=== PATIENT | female | born 1980 | race Caucasian/White ===

== ENCOUNTER 2023-08-11 | Outpatient (REF) | payer OTHER, SELFPAY | END 2023-08-11 00:01 | disposition home or self-care (01) | LOC: LAB | PROVIDERS: Visit Provider Obstetrics & Gynecology | DX: Z01.419 Encounter for gynecological examination (general) (routine) without abnormal findings (principal) | CPT/HCPCS: 87624; G0145 ==

== ENCOUNTER 2023-09-25 08:56 | Outpatient (OUT) | payer OTHER, SELFPAY ==
--- OUTSIDE RECORDS SUMMARY | 2023-09-25 09:00 | XMS_ITS | CCD ---
Author Organization [facility] Care Team Providers Care Food Service Technician Name Role Phone DR ASIM GALAN Attending Unavailable ANGELIA, DR DAILEY Consulting Unavailable ANGELIA, DR DAILEY Admitting Unavailable KLAEGE, HARRY L Referring Unavailable KLAEGE, HARRY L Primary Care Unavailable JAS MICHAEL Referring Unavailable KLAEGE, HARRY L Primary Care Unavailable Klaege, Harry Primary Care Unavailable Klaege, Harry Attending Unavailable Klaege, Harry Attending Unavailable Klaege, Harry Primary Care Unavailable Klaege, Harry Attending Unavailable Klaege, Harry Primary Care Unavailable Klaege, Harry Primary Care Unavailable KAY OLSON Attending Unavailable KLAEGE, HARRY L Referring Unavailable KLAEGE, HARRY L Primary Care Unavailable KLAEGE, HARRY L Referring Unavailable KLAEGE, HARRY L Primary Care Unavailable ASIM GALAN Attending Unavailable ANGELIA, ASIM Referring Unavailable ASIM GALAN Attending Unavailable Allergies Allergy Classification Reported Allergen(s) Allergy Type Date of Onset Reaction(s) Facility (1 source) Escitalopram; Translations: [Lexapro] Drug Allergy [facility] Repository (1 source) No Known Medication Allergies; Translations: [No Known Medication Allergies] Propensity to adverse reactions to drug (disorder) [facility] Repository Problems Active Problems Problem Classification Problem Date Documented Da te Episodic/Chronic Esophageal disorders (1 source) Esophageal disorders; Translations: [Gastro-esophageal reflux disease with esophagitis, without bleeding] Onset: 07-15-2023 Immunizations and screening for infectious disease (1 source) Encounter for screening for human papillomavirus (HPV); Translations: [ENC SCREENING HUMAN PAPILLOMAVIRUS] Onset: 11-14-2021 Episodic Other female genital disorders (1 source) Personal history of other diseases of the female genital tract; Translations: [Personal history of other diseases of the female genital tract] Onset: 08-18-2023 Episodic Other gastrointestinal disorders (1 source) Bariatric surgery status; Translations: [Bariatric surgery status] Onset: 07-15-2023 Episodic Other screening for suspected conditions (not mental disorders or infectious disease) (4 sources) Encounter for screening for malignant neoplasm of cervix; Translations: [ENC SCREENING MALIG NEOPLASM CERV] Onset: 11-12-2021 Episodic Residual codes; unclassified (1 source) Family history of diseases of the blood and blood-forming organs and certain disorders involving the immune mechanism; Translations: [Family history of diseases of the blood and blood-forming organs and certain disorders involving the immune mechanism] Onset: 08-18-2023 Episodic Unclassified (1 source) Outpatient Infusion Onset: 07-02-2023 Unclassified (1 source) New Patient Onset: 08-18-2023 Past or Other Problems Problem Classification Problem Date Documented Da te Episodic/Chronic Fluid and electrolyte disorders (1 source) Dehydration; Translations: [Dehydration] Onset: 02-11-2022 Episodic Other nutritional; endocrine; and metabolic disorders (1 source) Other symptoms and signs concerning food and fluid intake; Translations: [Other symptoms and signs concerning food and fluid intake] Onset: 02-11-2022 Episodic Results Test Name Value Interpretation Reference Range Facil ity BI MAMMOGRAM SCREENING TOMOS YNTHESIS BILATERALon 08-26-2023 BI MAMMOGRAM SCREENING TOMOSYNTHESIS BILATERAL This is a summary report. The complete report is available in the patient's medical record. If you cannot access the medical record, please contact the sending organization for a detailed fax or copy. EXAMINATION: BI MAMMOGRAM SCREENING TOMOSYNTHESIS BILATERAL CLINICAL HISTORY:screening breast cancer COMPARISON: There are no previous mammograms available for comparison. RESULT: Density: Almost entirely fatty [1] Typically benign calcifications. There is no suspicious mass, asymmetry, architectural distortion, or calcification IMPRESSION: BIRADS 2 - Benign Follow-up: Routine Screening Mamm Board Certified Radiologists. Accredited by the ACR and FDA. MAMMOGRAPHY IS VERY IMPORTANT TO YOUR HEALTH. THE [employer]ET[employer] GUIDELINES RECOMMEND THAT WOMEN 40 YEARS OF AGE AND OLDER SHOULD HAVE A MAMMOGRAM EVERY YEAR. A REMINDER LETTER WILL BE SENT AT THE APPROPRIATE TIME. THIS FACILITY UTILIZES A REMINDER SYSTEM TO ENSURE ALL PATIENTS RECEIVE REMINDER NOTIFICATIONS AT THE APPROPRIATE TIME BASED ON THE RECOMMENDATIONS OF THIS EXAM. THIS INCLUDES REMINDERS FOR ROUTINE SCREENING MAMMOGRAMS, DIAGNOSTIC MAMMOGRAMS IN WHICH THE PATIENT IS ASKED TO RETURN FOR ADDITIONAL VIEWS, OR OTHER BREAST IMAGING INTERVENTIONS WHEN APPROPRIATE. THE PATIENT WILL BE PLACED IN THE APPROPRIATE REMINDER SYSTEM INCLUDING A REMINDER AT THE APPROPRIATE TIME FOR ANY PENDING ADDITIONAL VIEWS. TRANSCRIBED BY: ELECTRONICALLY SIGNED BY: Miller Tony MD Normal Not Available Laboratory comment Aurelio (Repo rt)on 08-18-2023 UNLISTED LAB TEST Sent to reference lab Normal [facility] PLATELET FUNCTIONon 08-18-19 24 COLLAGEN/ADP 83 sec Normal 0-[address] [facility] Comment on above: Performed By: #### P FA, PINR, [id number] #### [facility] ([id number]) [address], [address] [place] [address] COLLAGEN/EPINEPHRIN E 107 sec Normal 0-[address] [facility] Comment on above: Performed By: #### P FA, PINR, [id number] #### [facility] ([id number]) [address], [address] [place] [address] PFA INTERP Platelet function is normal. If patient Normal [facility] Comment on above: Result Comment: hist ory/physical examination gives strong indication of a bleeding disorder, consider testing for other etiologies. Performed By: #### P FA, PINR, [id number] #### [facility] ([id number]) [address], [address] [place] [address] PROTIME AND INRon 08-18-2023 INR Coag (PPP) [Relative time] 1.1 {INR} Normal 0.8-1.[address] [facility] Comment on above: Performed By: #### P FA, PINR, [id number] #### [facility] ([id number]) [address], [facility] [address] [place] [address] PT Coag (PPP) [Time] 12.7 s Normal 9.8-13.[address] [facility] Comment on above: Performed By: #### P FA, PINR, [id number] #### [facility] ([id number]) [address], [address] [place] [address] SEND OUT TESTon 08-18-2023 SENT TO [facility] Normal [facility] SPECIMEN YELLOW ACD WHOLE BLOOD Normal Pr [facility] TEST NAME: ELECTRON PLATELET MICROSCOPY Normal [facility] TEST RESULT See separate report for further information. Normal [facility] Comment on above: Result Comment: View in OnBase Viewer in EPIC or MedRec Tab in ICARE or HPF. aPTT Coag (PPP) [Time]on aPTT Coag (Bld) [Time] 36 s Normal 26-[address] [facility] Comment on above: Performed By: #### P FA, PINR, [id number] #### [facility] ([id number]) [address], [address] [place] [address] PAP ACOG PANEL 2: 30 to 65on 11-18-2021 . . Normal [facility] Comment on above: Result Comment: Perf ormed at: WB Performed By: #### [id number] #### [facility] [address] [address] [address] Sabra Vargas Age Gdln ACOG Testing 30-65 Normal [facility] Comment on above: Performed By: #### [id number] #### [facility] [address] [address] [address] Sabra Vargas DIAGNOSIS: Comment Normal [facility] Comment on above: Result Comment: NEGA TIVE FOR INTRAEPITHELIAL LESION OR MALIGNANCY. Performed at: WB Performed By: #### 4 [id number] #### [facility] [address] [address] [address] Sabra Vargas HPV Aptima Negative Normal Negative [facility] Comment on above: Result Comment: This nucleic acid amplification test detects fourteen high-risk HPV types (16,18,31,33,35,39,45,51,52,56,58,59,66,68) without differentiation. Performed at: =G Performed By: #### 4 [id number] #### [facility] [address] [address] [address] Sabra Vargas Methodology: Comment Normal [facility] Comment on above: Result Comment: This liquid based ThinPrep(R) pap test was screened with the use of an image guided system. Performed at: WB Performed By: #### 4 [id number] #### [facility] [address] [place] [address] Dr. Sabra Vargas Note: Comment Normal [facility] Comment on above: Result Comment: The Pap smear is a screening test designed to aid in the detection of premalignant and malignant conditions of the uterine cervix. It is not a diagnostic procedure and should not be used as the sole means of detecting cervical cancer. Both false-positive and false-negative reports do occur. . Performed at: WB Performed By: #### [id number] #### [facility] [address] [address] [address] Sabra Vargas Performed by: Comment Normal [facility] Comment on above: Result Comment: Abiodun Allen, Lever Tender (ASCP) Performed at: WB Performed By: #### 4 [id number] #### [facility] [address] [place] [address] Dr. Sabra Vargas Specimen adequacy: Comment Normal [facility] Comment on above: Result Comment: Sati sfactory for evaluation. Endocervical and/or squamous metaplastic cells (endocervical component) are present. Performed at: WB Performed By: #### 4 [id number] #### [facility] [address] [place] [address] Dr. Sabra Vargas Encounters Encounter Date Encounter Type Care Provider Facility Start: 09-14-2023 End: 09-14-2023 ambulatory ASIM ANGELIA Not Available Start: 08-26-2023 End: 08-26-2023 ambulatory ASIM ANGELIA Not Available Start: 08-18-2023 End: 08-18-2023 ambulatory HARRY KHAN [facility] Start: 08-18-2023 End: 08-18-2023 ambulatory KAY PATELA [facility] Start: 08-11-2023 End: 08-11-2023 ambulatory ASIM ANGELIA Not Available Start: 07-15-2023 End: 07-16-2023 ambulatory [facility] Start: 07-02-2023 End: 07-02-2023 ambulatory HARRY [facility] Start: 04-20-2023 End: 04-21-2023 ambulatory Harry Klaege Facility: [facility] Start: 04-13-2023 ambulatory Harry Klaege Facility:[facility] Start: 12-29-2022 End: 12-30-2022 ambulatory Harry Klaege Facility: [facility] Start: 10-09-2022 End: 10-10-2022 ambulatory Harry Klaege Facility: [facility] Start: 11-12-2021 End: 11-12-[address] ASIM GALAN Facility: Payers Date Payer Category Payer Unknown [id number] 1980 Unknown [id number] 2..84 [id number]. 1980 Unknown [id number] 2.16.8 [id number] 1980 Unknown [id number] 2.16.8 [id number] 1982 Unknown [id number] 2.16.8 40.1.263781.3.579.2. 1982 Unknown [id number] 2.16.8 40.1.076959.3.579.2. 1982 Unknown [id number] 2.16.8 40.1.212497.3.579.2. 1982 Unknown [id number] 2.16.8 40.1.031034.3.579.2. 1982 Unknown [id number] 2.16.8 [id number] 1982 Unknown [id number] 2.16.8 [id number] 1982 Unknown [id number] 2.16.84 0.1.001475.3.579.2.1259 1982 Unknown [id number] 2.16.84 [id number] 1982 Unknown [id number] 2.16.84 [id number] 1959 Unknown [id number] Medication management note 08-10-2023 Note Date & Type Note Facility 08-10-2023 Note Entered by Sierra Cordova on August 10, 2023 07:51:36 EDT From: Sierra Cordova To: [id number] Sent: 08/10/2023 07:51:36 EDT Subject: Medication Management Not Approved: proposal sent to prescriber gabapentin (GABAPENTIN 400 MG CAPSULE) TAKE 2 CAPSULES BY MOUTH IN THE MORNING AND 3 CAPSULES IN THE EVENING Qty: 450 cap(s) Days Supply: 90 Refills: 0 Substitutions Allowed Route To Pharmacy - [id number] Signed by Sierra Cordova From: [id number] To: Harry Khan MD Sent: August 10, 2023 4:28:26 AM CDT Subject: Medication Management Due: August 11, 2023 12:09:00 AM CDT On Hold Pending Signature Dispensed Drug: gabapentin (gabapentin 400 mg oral capsule), TAKE 2 CAPSULES BY MOUTH IN THE MORNING AND 3 CAPSULES IN THE EVENING Quantity: 450 cap(s) Days Supply: 90 Refills: 0 Substitutions Allowed Notes from Pharmacy: [facility] Clinical Note 07-15-2023 Note Date & Type Note Facility 07-15-2023 Note FL UGI WITH ESOPHAGU S CLINICAL INFORMATION: Prior duodenal switch procedure. Pain. COMPARISON: 11/12/2021 TECHNIQUE: Single contrast upper GI was performed. FINDINGS: Reference Air Kerma: 90 mGy ESOPHAGUS Anatomic: No mass, stricture, or ulceration. Motility: Mild-moderate dysmotility with intraesophageal stasis/reflux. Hiatal hernia: None. Gastroesophageal reflux: No significant gastroesophageal reflux, including with provocative maneuvers Other comments: None. STOMACH AND DUODENUM No gross mucosal abnormality Relatively rapid gastric emptying. Post surgical changes of duodenal switch, without anastomotic stricture. Opacification of both afferent/efferent limbs, presumably within physiologic limits.. Somewhat patulous small bowel loops measuring 3-3.5 cm towards the right lower quadrant, requiring clinical correlation. No evidence for obstruction, with relatively rapid positive contrast opacification of the cecum IMPRESSION: 1. 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 No hiatal hernia or significant/provoked gastroesophageal reflux. 2. Post surgical changes of duodenal switch. Relatively rapid gastric emptying, without evidence for anastomotic stricture. 3. Somewhat patulous postoperative small bowel loops, indeterminate significance. Relatively rapid transit to the cecum, seen incidentally during this upper GI study (within 10 to 15 minutes) Finalized by Victorino Powers MD on 07/15/2023 3:09 PM [facility] Medication management note 05-12-2023 Note Date & Type Note Facility 05-12-2023 Note Entered by Sierra Cordova on May 12, 2023 07:39:54 EST From: Sierra Cordova [facility]: [id number] Sent: 05/12/2023 07:39:54 EST Subject: Medication Management Not Approved: proposal sent to physician gabapentin (GABAPENTIN 400 MG CAPSULE) TAKE 2 CAPSULES BY MOUTH EVERY DAY IN THE MORNING AND TAKE 3 CAPSULES IN THE EVENING Qty: 450 cap(s) Days Supply: 90 Refills: 0 Substitutions Allowed Route To Pharmacy - [id number] Signed by Sierra Cordova From: [id number] To: Harry Khan MD Sent: May 11, 2023 6:29:23 PM NURSE EXTERN Subject: Medication Management Due: May 12, 2023 12:07:44 AM NURSE EXTERN On Hold Pending Signature Dispensed Drug: gabapentin (gabapentin 400 mg oral capsule), TAKE 2 CAPSULES BY MOUTH EVERY DAY IN THE MORNING AND TAKE 3 CAPSULES IN THE EVENING Quantity: 450 cap(s) Days Supply: 90 Refills: 0 Substitutions Allowed Notes from Pharmacy: [facility] Medication management note 01-22-2023 Note Date & Type Note Facility 01-22-2023 Note Entered by Sierra Cordova on January 22, 2023 09:34:14 EDT From: Sierra Cordova To: [id number] Sent: 01/22/2023 09:34:14 EDT Subject: Medication Management Not Approved: proposal sent to physician gabapentin (GABAPENTIN 400 MG CAPSULE) TAKE 2 CAPSULES BY MOUTH EVERY DAY IN THE MORNING AND 3 CAPSULES IN THE EVENING Qty: 450 cap(s) Days Supply: 90 Refills: 0 Substitutions Allowed Route To Pharmacy - [facility] #[id number] Signed by Sierra Cordova From: [id number] To: Harry Khan MD Sent: January 21, 2023 3:06:38 PM CDT Subject: Medication Management Due: January 22, 2023 1:51:22 PM CDT On Hold Pending Signature Dispensed Drug: gabapentin (gabapentin 400 mg oral capsule), TAKE 2 CAPSULES BY MOUTH EVERY DAY IN THE MORNING AND 3 CAPSULES IN THE EVENING Quantity: 450 cap(s) Days Supply: 90 Refills: 0 Substitutions Allowed Notes from Pharmacy: [facility] Medication management note 11-25-2022 Note Date & Type Note Facility 11-25-2022 Note Entered by Sierra Cordova on November 25, 2022 07:53:21 EDT From: Sierra Cordova To: [facility] #[id number] Sent: 11/25/2022 07:53:21 EDT Subject: Medication Management Approved Order:traZODone (traZODone 50 mg oral tablet) TAKE 1 TO 2 TABLETS BY MOUTH EVERY DAY AT BEDTIME Qty: 180 tab(s) Days Supply: 90 Refills: 1 Substitutions Allowed Route To Pharmacy - [id number] Note from Pharmacy: REQUEST FOR 90 DAYS PRESCRIPTION. Signed by Sierra Cordova Cancelled: Discontinue:traZODone (traZODone 50 mg oral tablet) Signed by Sierra Cordova From: [id number] To: Harry Khan MD Sent: November 24, 2022 11:04:41 AM CDT Subject: Medication Management Due: November 25, 2022 11:04:41 AM CDT Originally Prescribed Drug: Drug: traZODone (traZODone 50 mg oral tablet), TAKE 1 TO 2 TABLETS BY MOUTH EVERY DAY AT BEDTIME Quantity: 60 tab(s) Days Supply: 30 Refills: 0 Substitutions Allowed Notes from Pharmacy: REQUEST FOR 90 DAYS PRESCRIPTION. On Hold Pending Signature Preferred Alternative Drug: traZODone (traZODone 50 mg oral tablet), TAKE 1 TO 2 TABLETS BY MOUTH EVERY DAY AT BEDTIME Quantity: 180 tab(s) Days Supply: 90 Refills: 1 Substitutions Allowed Notes from Pharmacy: REQUEST FOR 90 DAYS PRESCRIPTION. [facility] Medication management note 11-10-2022 Note Date & Type Note Facility 11-10-2022 Note Entered by Sierra Cordova on November 10, 2022 10:58:33 EDT From: Sierra Cordova To: [facility] #[id number] Sent: 11/10/2022 10:58:33 EDT Subject: Medication Management Submitted: Complete:traZODone (traZODone 50 mg oral tablet) Signed by Sierra Cordova 11/10/2022 10:58:00 EDT Approved traZODone (TRAZODONE 50 MG TABLET) TAKE 1 TO 2 TABLETS BY MOUTH EVERY DAY AT BEDTIME Qty: 60 tab(s) Days Supply: 30 Refills: 0 Substitutions Allowed Route To Pharmacy - [facility] #[id number] Signed by Sierra Cordova From: [id number] To: Harry Khan MD Sent: November 09, 2022 10:30:37 AM CDT Subject: Medication Management Due: November 10, 2022 12:30:33 AM CDT On Hold Pending Signature Dispensed Drug: traZODone (traZODone 50 mg oral tablet), TAKE 1 TO 2 TABLETS BY MOUTH EVERY DAY AT BEDTIME Quantity: 60 tab(s) Days Supply: 30 Refills: 0 Substitutions Allowed Notes from Pharmacy: [facility] Medication management note 10-01-2022 Note Date & Type Note Facility 10-01-2022 Note Entered by Sierra Cordova on October 01, 2022 09:35:11 EDT From: Sierra Cordova To: [facility] #[id number] Sent: 10/01/2022 09:35:11 EDT Subject: Medication Management Submitted: Complete:citalopram (CeleXA 20 mg oral tablet) Signed by Sierra Cordova 10/01/2022 09:35:00 EDT Approved citalopram (CITALOPRAM HBR 20 MG TABLET) TAKE 1 TABLET BY MOUTH EVERY DAY Qty: 30 tab(s) Days Supply: 30 Refills: 1 Substitutions Allowed Route To Pharmacy - [facility] #[id number] Signed by Sierra Cordova Patient matched by Sierra Cordova on 10/01/2022 09:33:59 EDT From: [id number] To: Harry Khan MD Sent: October 01, 2022 8:30:31 AM CDT Subject: Medication Management Due: October 02, 2022 12:08:04 AM CDT On Hold Pending Signature Dispensed Drug: citalopram (citalopram 20 mg oral tablet), TAKE 1 TABLET BY MOUTH EVERY DAY Quantity: 30 tab(s) Days Supply: 30 Refills: 1 Substitutions Allowed Notes from Pharmacy: [facility] Summary Purpose Family History No Family History Records FoundNo Family History Records FoundNo Family History Records FoundNo Family History Records FoundNo Family History Records FoundNo Family History Records Found Advance Directives No Advanced Directives Records FoundNo Advanced Directives Records FoundNo Advanced Directives Records FoundNo Advanced Directives Records FoundNo Advanced Directives Records FoundNo Advanced Directives Records Found Additional Source Comments INFORMATION SOURCE (unrecogn ized section and content) DATE CREATED AUTHOR 11/19/2021 [facility] DATE CREATED AUTHOR AUTHOR'S ORGANIZ ATION 07/03/2023 [facility] DATE CREATED AUTHOR AUTHOR'S ORGANIZ ATION 07/17/2023 [facility] DATE CREATED AUTHOR AUTHOR'S ORGANIZ ATION 08/11/2023 [facility] DATE CREATED AUTHOR AUTHOR'S ORGANIZ ATION 08/23/[address] [facility] DATE CREATED AUTHOR AUTHOR'S ORGANIZ ATION 09/14/[address] [facility] EPIC FOR RECORDS PERTAINING TO PATIENTS WHO ARE OR HAVE BEEN ENROLLED IN A CHEMICAL DEPENDENCY/SUBSTANCEABUSE PROGRAM, SOME INFORMATION MAY BE OMITTED. This clinical summary was aggregated from multiple sources. Caution should be exercised in using it in the provision of clinical care. This summary normalizes information from multiple sources, and as a consequence, information in this document may materially change the coding, format and clinical context of patient data. In addition, data may be omitted in some cases. CLINICAL DECISIONS SHOULD BE BASED ON THE PRIMARY CLINICAL RECORDS. [employer] provides no warranty or guarantee of the accuracy or completeness of information in this document.
--- NOTE | 2023-09-25 09:23 | XR_ITS ---
The [address] [address] Patient Name: RONY APARICIO MRN: [id number] date: 1980 Sex: F Assigned Patient Location: [facility] Current Patient Location: Accession/Order Number: [id number] Exam Date: 09/25/2023 09:39 Report Date: 09/26/2023 06:27 At the request of: ASIM GALAN Procedure: XR chest 2V EXAMINATION: XR chest 2V HISTORY: Preop exam COMPARISON: No relevant comparison available. FINDINGS: LUNGS: Dense 9 mm nodule within lateral left lung base. Lungs are otherwise clear. VASCULATURE: No increased pulmonary vasculature. PLEURA: No pneumothorax, effusion, or pleural thickening. CARDIAC: No cardiomegaly or cardiac silhouette abnormality. MEDIASTINUM: No visible mass or adenopathy. BONES: No fracture or visible bone lesion. OTHER: Negative. XR/XR chest 2V IMPRESSION: 1. No acute cardiopulmonary process. 2. Left lung base nonspecific dense nodule, but favoring a calcified granuloma. No prior studies for comparison. Electronically authenticated by: HELENA FERGUSON Date: 09/26/2023 06:27
== END 2023-09-25 08:57 | disposition home or self-care (01) ==
PROVIDERS: Visit Provider Obstetrics & Gynecology
DX: Z01.810 Encounter for preprocedural cardiovascular examination (principal); R91.1 Solitary pulmonary nodule
CPT/HCPCS: 71046

== ENCOUNTER 2023-10-09 08:30 | Day surgery (SDC) | payer OTHER, SELFPAY ==
[2023-09-25 09:29] VITALS: BP 105/66; PULSE 63; TEMP 36.4; O2SAT 99; BMI 26.5
[2023-10-09] VITALS (11 sets, daily range): BP systolic 106–134; BP diastolic 64–93; PULSE 58–93; TEMP 36.1; O2SAT 95–98; BMI 26.5
[2023-10-09 08:39] LABS: Basophils Percent Auto 0.4 % (0.2-2.0); Eosinophils Absolute Auto 0.2 10^3/uL (0.0-0.7); Eosinophils Percent Auto 2.1 % (0.9-7.0); Hematocrit 39.9 % (36.0-48.0); Hemoglobin 12.9 g/dL (12.0-16.0); Immature Granulocytes Abs Auto 0.02 10^3/uL (0.00-0.03); Immature Granulocytes Pct Auto 0.2 % (0.0-0.5); Lymphocytes Absolute Auto 3.4 10^3/uL (1.2-3.8); Lymphocytes Percent Auto 35.9 % (20.5-60.0); Mean Corpuscular HGB Conc 32.3 g/dL (29.9-35.2); Mean Corpuscular Hemoglobin 30.1 pg (26.7-34.0); Mean Corpuscular Volume 93.2 fL (81.0-99.0); Monocytes Absolute Auto 0.7 10^3/uL (0.3-0.8); Monocytes Percent Auto 7.3 % (1.7-12.0); Neutrophils Absolute Auto 5.2 10^3/uL (1.4-6.5); Neutrophils Percent Auto 54.1 % (43.0-75.0); Platelet Count 244 10^3/uL (150-450); Red Blood Count 4.28 10^6/uL (4.20-5.40); Red Cell Distribution Width 12.3 % (11.0-15.0); White Blood Count 9.6 10^3/uL (4.0-11.0)
--- OUTSIDE RECORDS SUMMARY | 2023-10-09 08:51 | XMS_ITS | CCD ---
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 Repository (1 source) No Known Medication Allergies; Translations: [No Known Medication Allergies] Propensity to adverse reactions to drug (disorder) [facility] Repository Problems Active Problems Problem Classification [...] IS VERY IMPORTANT TO YOUR HEALTH. THE [employer] GUIDELINES RECOMMEND THAT WOMEN 40 [...] LAB TEST Sent to reference lab Normal [facility] PLATELET FUNCTIONon 08-18-19 24 COLLAGEN/ADP 83 sec Normal 0-114 [facility] Comment on above: Performed By: #### P FA, PINR, [id number] #### [facility] ([id number]) [address], [address] [place] [address] COLLAGEN/EPINEPHRIN E 107 sec Normal 0-179 [facility] Comment on above: Performed By: #### P FA, PINR, [id number] #### [facility] ([id number]) [address], [address] [place] [address] PFA INTERP Platelet function is normal. If patient Normal [facility] Comment on above: Result Comment: hist ory/physical examination gives strong indication of a bleeding disorder, consider testing for other etiologies. Performed By: #### P FA, PINR, [id number] #### [facility] ([id number]) [address], [address] [place] [address] PROTIME AND INRon 08-18-2023 INR Coag (PPP) [Relative time] 1.1 {INR} Normal 0.8-1.1 [facility] Comment on above: Performed By: #### P FA, PINR, [id number] #### [facility] ([id number]) [address], [facility] [address] [place] [address] PT Coag (PPP) [Time] 12.7 s Normal 9.8-13.2 [facility] Comment on above: Performed By: #### P FA, PINR, [id number] #### [facility] ([id number]) [address], [address] [place] [address] SEND OUT TESTon 08-18-2023 SENT TO [facility] Normal [facility] SPECIMEN YELLOW ACD WHOLE BLOOD Normal Pr [facility] TEST NAME: ELECTRON PLATELET MICROSCOPY Normal [facility] TEST RESULT See separate report for further information. Normal [facility] Comment on above: Result Comment: View in OnBase Viewer in EPIC or MedRec Tab in ICARE or HPF. aPTT Coag (PPP) [Time]on aPTT Coag (Bld) [Time] 36 s Normal 26-37 [facility] Comment on above: Performed By: #### P FA, PINR, [id number] #### [facility] ([id number]) [address], [address] [place] [address] PAP ACOG PANEL 2: 30 to 65on 11-18-2021 . . Normal [facility] Comment on above: Result Comment: Perf ormed at: WB Performed By: #### [id number] #### [facility] [address] [address] [address] Sabra Vargas Age Gdln ACOG Testing 30-65 Normal [facility] Comment on above: Performed By: #### [id number] #### [facility] [address] [address] [address] Sabra Vargas DIAGNOSIS: Comment Normal [facility] Comment on above: Result Comment: NEGA TIVE FOR INTRAEPITHELIAL LESION OR MALIGNANCY. Performed at: WB Performed By: #### [id number] #### [facility] [address] [address] [address] Sabra Vargas HPV Aptima Negative Normal Negative [facility] Comment on above: Result Comment: This nucleic acid amplification test detects fourteen high-risk HPV types (16,18,31,33,35,39,45,51,52,56,58,59,66,68) without differentiation. Performed at: =G Performed By: #### [id number] #### [facility] [address] [address] [address] Sabra Vargas Methodology: Comment Normal [facility] Comment on above: Result Comment: This liquid based ThinPrep(R) pap test was screened with the use of an image guided system. Performed at: WB Performed By: #### [id number] #### [facility] [address] [place] [address] Dr. Sabra Vargas Note: Comment Normal [facility] Comment on above: Result Comment: The Pap smear is a screening test designed to aid in the detection of premalignant and malignant conditions of the uterine cervix. It is not a diagnostic procedure and should not be used as the sole means of detecting cervical cancer. Both false-positive and false-negative reports do occur. . Performed at: WB Performed By: #### [id number] #### [facility] [address] [address] [address] Sabra Vargas Performed by: Comment Normal [facility] Comment on above: Result Comment: Abiodun Allen, Md Senior Research Scientist (ASCP) Performed at: WB Performed By: #### [id number] #### [facility] [address] [place] [address] Dr. Sabra Vargas Specimen adequacy: Comment Normal [facility] Comment on above: Result Comment: Sati sfactory for evaluation. Endocervical and/or squamous metaplastic cells (endocervical component) are present. Performed at: WB Performed By: #### 4 [id number] #### [facility] [address] [place] [address] Dr. Sabra Vargas Encounters Encounter Date Encounter [...] CLIN IC Start: 04-13-2023 ambulatory Harry Klaege Facility:[facility] Start: 12-29-2022 End: 12-30-2022 ambulatory Harry Klaege Facility: [facility] Start: 10-09-2022 End: 10-10-2022 ambulatory Harry Klaege Facility: [facility] Start: 11-12-2021 End: 11-12-[address] ASIM GALAN Facility: Payers Date Payer Category Payer Unknown [id number] 1980 Unknown [id number] 2..84 [id number] 1982 Unknown [id number] 2.16.8 [id number] 1982 Unknown [id number] 2.16.8 [id number] 1982 Unknown [id number] 2.16.8 [id number]. 1982 Unknown [id number] 2.16.8 40.1.672324.3.579.2. 1982 Unknown [id number] 2.16.8 40.1.359425.3.579.2. 1982 Unknown [id number] 2.16.8 40.1.242646.3.579.2. 1982 Unknown [id number] 2.16.8 [id number] 1982 Unknown [id number] 2.16.8 [id number] 1982 Unknown [id number] 2.16.84 [id number] 1982 Unknown [id number] 2.16.84 [id number] 1982 Unknown [id number] 2.16.84 [id number] 1959 Unknown [id number] Medication management note 08-10-2023 Note Date & Type Note Facility 08-10-2023 Note Entered by Sierra Cordova on August 10, 2023 07:51:36 EDT From: Sierra Cordova To: [id number] Sent: 08/10/2023 07:51:36 EDT Subject: Medication Management Not Approved: proposal sent to prescriber gabapentin (GABAPENTIN 400 MG CAPSULE) TAKE 2 CAPSULES BY MOUTH IN THE MORNING AND 3 CAPSULES IN THE EVENING Qty: 450 cap(s) Days Supply: 90 Refills: 0 Substitutions Allowed Route To Pharmacy - [facility]/pharmacy #[id number] Signed by Sierra Cordova From: [id number] To: Harry Khan MD Sent: August 10, 2023 4:28:26 AM CDT Subject: Medication Management Due: August 11, 2023 12:09:00 AM CDT On Hold Pending Signature Dispensed Drug: gabapentin (gabapentin 400 mg oral capsule), TAKE 2 CAPSULES BY MOUTH IN THE MORNING AND 3 CAPSULES IN THE EVENING Quantity: 450 cap(s) Days Supply: 90 Refills: 0 Substitutions Allowed Notes from Pharmacy: [facility] Clinical Note 07-15-2023 Note Date & [...] Victorino Powers MD on 07/15/2023 3:09 PM [facility] Medication management note 05-12-2023 Note Date & Type Note Facility 05-12-2023 Note Entered by Sierra Cordova on May 12, 2023 07:39:54 EST From: Sierra Cordova To: [id number] Sent: 05/12/2023 07:39:54 EST Subject: Medication Management Not Approved: proposal sent to physician gabapentin (GABAPENTIN 400 MG CAPSULE) TAKE 2 CAPSULES BY MOUTH EVERY DAY IN THE MORNING AND TAKE 3 CAPSULES IN THE EVENING Qty: 450 cap(s) Days Supply: 90 Refills: 0 Substitutions Allowed Route To Pharmacy - [facility]/pharmacy #[id number] Signed by Sierra Cordova From: [id number] To: Harry Khan MD Sent: May 11, 2023 6:29:23 PM PLASTIC [employer]ER [employer] Subject: Medication Management Due: May 12, 2023 12:07:44 AM [employer] On Hold Pending Signature Dispensed Drug: gabapentin (gabapentin 400 mg oral capsule), TAKE 2 CAPSULES BY MOUTH EVERY DAY IN THE MORNING AND TAKE 3 CAPSULES IN THE EVENING Quantity: 450 cap(s) Days Supply: 90 Refills: 0 Substitutions Allowed Notes from Pharmacy: [facility] Medication management note 01-22-2023 Note Date & Type Note Facility 01-22-2023 Note Entered by Sierra Cordova on January 22, 2023 09:34:14 EDT From: Sierra Cordova To: [facility]/pharmacy #[id number] Sent: 01/22/2023 09:34:14 EDT Subject: Medication Management Not Approved: proposal sent to physician gabapentin (GABAPENTIN 400 MG CAPSULE) TAKE 2 CAPSULES BY MOUTH EVERY DAY IN THE MORNING AND 3 CAPSULES IN THE EVENING Qty: 450 cap(s) Days Supply: 90 Refills: 0 Substitutions Allowed Route To Pharmacy - [facility]/pharmacy #[id number] Signed by Sierra Cordova From: [id number] To: Harry Khan MD Sent: January 21, [...] Substitutions Allowed Notes from Pharmacy: [facility] Medication management note 11-25-2022 Note Date & Type Note Facility 11-25-2022 Note Entered by Sierra Cordova on November 25, 2022 07:53:21 EDT From: Sierra Cordova To: [facility]/pharmacy #[id number] Sent: 11/25/2022 07:53:21 EDT Subject: Medication Management Approved Order:traZODone (traZODone 50 mg oral tablet) TAKE 1 TO 2 TABLETS BY MOUTH EVERY DAY AT BEDTIME Qty: 180 tab(s) Days Supply: 90 Refills: 1 Substitutions Allowed Route To Pharmacy - [id number] Note from Pharmacy: REQUEST FOR 90 DAYS PRESCRIPTION. Signed by Sierra Cordova Cancelled: Discontinue:traZODone (traZODone 50 mg oral tablet) Signed by Sierra Cordova From: [id number] To: Harry Khan MD Sent: November 24, [...] REQUEST FOR 90 DAYS PRESCRIPTION. [facility] Medication management note 11-10-2022 Note Date & Type Note Facility 11-10-2022 Note Entered by Sierra Cordova on November 10, 2022 10:58:33 EDT From: Sierra Cordova To: [facility]/pharmacy #[id number] Sent: 11/10/2022 10:58:33 EDT Subject: Medication Management Submitted: Complete:traZODone (traZODone 50 mg oral tablet) Signed by Sierra Cordova 11/10/2022 10:58:00 EDT Approved traZODone (TRAZODONE 50 MG TABLET) TAKE 1 TO 2 TABLETS BY MOUTH EVERY DAY AT BEDTIME Qty: 60 tab(s) Days Supply: 30 Refills: 0 Substitutions Allowed Route To Pharmacy - [facility]/pharmacy #[id number] Signed by Sierra Cordova From: [facility] STORE [id number] To: Harry Khan MD Sent: November 09, 2022 10:30:37 AM CDT Subject: Medication Management Due: November 10, 2022 12:30:33 AM CDT On Hold Pending Signature Dispensed Drug: traZODone (traZODone 50 mg oral tablet), TAKE 1 TO 2 TABLETS BY MOUTH EVERY DAY AT BEDTIME Quantity: 60 tab(s) Days Supply: 30 Refills: 0 Substitutions Allowed Notes from Pharmacy: [facility] Medication management note 10-01-2022 Note Date & Type Note Facility 10-01-2022 Note Entered by Sierra Cordova on October 01, 2022 09:35:11 EDT From: Sierra Cordova To: [facility]/pharmacy #[id number] Sent: 10/01/2022 09:35:11 EDT Subject: Medication Management Submitted: Complete:citalopram (CeleXA 20 mg oral tablet) Signed by Sierra Cordova 10/01/2022 09:35:00 EDT Approved citalopram (CITALOPRAM HBR 20 MG TABLET) TAKE 1 TABLET BY MOUTH EVERY DAY Qty: 30 tab(s) Days Supply: 30 Refills: 1 Substitutions Allowed Route To Pharmacy - [facility]/pharmacy #[id number] Signed by Sierra Cordova Patient matched by Sierra Cordova on 10/01/2022 09:33:59 EDT From: [id number] To: Harry Khan MD Sent: October 01, 2022 8:30:31 AM CDT Subject: Medication Management Due: October 02, 2022 12:08:04 AM CDT On Hold Pending Signature Dispensed Drug: citalopram (citalopram 20 mg oral tablet), TAKE 1 TABLET BY MOUTH EVERY DAY Quantity: 30 tab(s) Days Supply: 30 Refills: 1 Substitutions Allowed Notes from Pharmacy: [facility] Summary Purpose Family History No Family [...] and content) DATE CREATED AUTHOR 11/19/2021 [facility] DATE CREATED AUTHOR AUTHOR'S ORGANIZ ATION 07/03/2023 [facility] DATE CREATED AUTHOR AUTHOR'S ORGANIZ ATION 07/17/2023 [facility] DATE CREATED AUTHOR AUTHOR'S ORGANIZ ATION 08/11/2023 [facility] DATE CREATED AUTHOR AUTHOR'S ORGANIZ ATION 08/23/2023 [facility] DATE CREATED AUTHOR AUTHOR'S ORGANIZ ATION 09/14/2023 [facility] EPIC FOR RECORDS PERTAINING TO PATIENTS [...] BE BASED ON THE PRIMARY CLINICAL RECORDS. [employer] provides no warranty or guarantee of the accuracy or completeness of information in this document.
[2023-10-09] MEDS: LACTATED RINGER'S SOLUTION 1,000 ML 50 ML IV (09:03)
[2023-10-09 09:25] LABS: HCG Quantitative <1 mIU/mL
[2023-10-09] MEDS: LACTATED RINGER'S SOLUTION 1,000 ML 1000 ML IV (11:51)
--- NOTE | 2023-10-09 12:06 | PM.ONB ---
Brief Operative Note Date of procedure: 10/09/23 Pre-op diagnosis general: desires permanent sterilization, multiparity Post-op diagnosis: same as pre-op Procedure: NAME OF PROCEDURE: robotic assisted bilateral laparoscopic salpingectomy PROCEDURE: The patient was taken back to the Operating Room where she was given general anesthesia without difficulty. She was then prepped and draped in the normal sterile fashion after being placed in a dorsal lithotomy position. A wet sponge stick was placed into the patient's vagina. Attention was then turned to the patient's abdomen, where a scalpel was used to make a small infraumbilical incision. The S retractors were then used to dissect the underlying layers until the fascia could be seen. The fascia was then grasped with Bibi clamps and tented up. A knife was then used to make a small incision to the fascia. The muscle was identified, at that time two sutures of #0 Vicryl on a GI needle was then used and placed through the fascia. the peritoneum was then identified and entered bluntly. The 10-4 Marlon was then placed into the patient's abdomen. This was confirmed with direct visualization of the bowel, using the laparoscope. The patient's abdomen was then insufflated using approximately 4 liters of CO2 gas. Survey of the patient's abdomen demonstrated ovaries were normal in appearance as well as both tubes and uterus. A second and third rt and lt lateral robotic ports which were 8 mm in size, was then placed after the skin incision was made under direct visualization . the robotic arms were engaged. The patient's tube on the patient's right side was identified and tented up using a grasper, the ligasure apparatus was then used to come across the mesosalpingx from the fimbriated end to the insertion site at the uterus, the tube was then amputated and removed in its entirety. This was done on the contralateral side. The tubes were the removed from the patients abdomen. Excellent hemostasis was noted. The lateral ports were then moved under direct visualization with excellent hemostasis. All instruments were removed from the patient's abdomen. The fascia was closed using the #0 Vicryl on GI needle. The skin was closed using 4-0 Vicryl subcuticularly. All instruments were removed from the patient's vagina as well. The patient was taken out of the dorsal lithotomy position and placed in the supine position and taken to recovery in stable condition. Sponge, lap and needle counts were correct x2. Anesthesia: GETA Surgeon: Jarret Nascimento Sander Portable Machine: Teresita Shaikh Estimated blood loss (mL): 5 Pathology: other (tubes) Condition: stable Disposition: PACU Urinary Catheter Management Urinary Catheter Management Urethral: Cath placed during this visit: no
== END 2023-10-09 13:46 | disposition home or self-care (01) ==
PROVIDERS: Visit Provider Obstetrics & Gynecology
PROC: (CPT 840; principal; 2023-10-09 10:00)
DX: Z30.2 Encounter for sterilization (principal); F17.290 Nicotine dependence, other tobacco product, uncomplicated; K21.9 Gastro-esophageal reflux disease without esophagitis; G62.9 Polyneuropathy, unspecified
CPT/HCPCS: 58661; 36415; 84702; 85025; 88302; J0131; J1100; J1170; J2405; J2704; J3010